=== PATIENT | male | born 1975 | race Caucasian/White ===

== ENCOUNTER 2020-09-06 14:52 | Inpatient (IN) | payer BC ==
[~2020-09-06] VITALS: Ht 177.8 cm; Wt 130.4 kg
[2020-09-06] MEDS ORDERED: ALPR1 PO (15:14)
[2020-09-06] MEDS ORDERED: ATOR40TA PO (15:14)
[2020-09-06] MEDS ORDERED: METO50 PO (15:15)
[2020-09-06] MEDS ORDERED: OMEP20ER PO (15:15)
[2020-09-06] MEDS ORDERED: BUPR150ER PO (15:15)
[2020-09-06] MEDS ORDERED: HYDCHL25 PO (15:15)
[2020-09-06 19:34] LABS: International Normalized Ratio 0.97; Prothrombin Time Results 10.4 Sec (9.7-11.5)
--- NOTE | 2020-09-06 21:35 | NUR ---
PT ARRIVES TO ICU 4 VIA GURNEY FROM ER, DENIES PAIN, DENIES CP/PRESSURE, DENIES SOB/DYSPNEA WHILE AT REST, DENIES NUMBNESS/TINGLING, DENIES N/V. HE IS NOTED TO BE MAINTAINING SATS, SPEAKING IN FULL SENTENCES, OCCASIONAL HARSH COUGH, NO VISIBLE INCREASED WORK OF BREATHING AT REST. SINUS RHYTHM ON MONITOR, RATE 80S, HYPERTENSION NOTED, PT STATES HASN'T TAKEN ALL OF HIS HOME MEDS TODAY, WILL ADMIN ORDERED LOPRESSOR AND MONITOR, NO EDEMA IS NOTED, BRISK CAP REFILL, STRONG PULSES, SKIN PWD. HEPARIN GTT INFUSING AT 15 UNITS/KG/HR FOR 96 KG, RATE 28.8 ML/HR, NEXT PTT DUE AT 0300. RECOMMENDED ACTIVITY LEVEL DISCUSSED WITH PT, CALL LIGHT PROVIDED, USE EXPLAINED AND ENCOURAGED. BED ALARM ARMED SECONDARY TO HX OF ETOH USE, PT VERBALIZED UNDERSTANDING.
[2020-09-07 03:35] LABS: Alanine Aminotransfer (ALT/SGP 12 U/L (12-78); Albumin, Blood 2.9 g/dL (3.4-5.0); Albumin/Globulin Ratio 0.8 (0.8-1.8); Alk Phos 83 U/L (50-136); Anion Gap 6 mmol/L (6-16); Aspartate Aminotrans (AST/SGOT 20 U/L (12-37); Bilirubin, Total 0.9 mg/dL (0.1-1.0); Blood Urea Nitrogen 10 mg/dL (8-24); Bun/Creatinine Ratio 11.4 (12.0-20.0); CO2, Blood 24 mmol/L (21-32); Calcium, Blood 8.4 mg/dL (8.5-10.1); Chloride, Blood 105 mmol/L (98-108); Creatinine, Blood 0.88 mg/dL (0.60-1.20); Globulin, Blood 3.8 g/dL (2.2-4.0); Glomerular Filtration Rate >60 (60-); Glucose, Blood 103 mg/dL (70-99); Potassium, Blood 3.9 mmol/L (3.5-5.5); Sodium, Blood 135 mmol/L (136-145); Total Protein, Blood 6.7 g/dL (6.4-8.2)
--- NOTE | 2020-09-07 05:43 | NUR ---
PT CONTINUES TO DENY CP/PRESSURE, DENIES SOB/DYSPNEA AT REST THROUGHOUT SHIFT, CIWA REMAINS AT 0, PT DECLINES OFFERED XANAX, DECLINES SLEEP MASK, EAR PLUGS, OR HAVING DOOR SHUT, STATES THAT HE HAS BEEN ABLE TO SLEEP HOWEVER HE IS NOTED AWAKE WITH EACH ROUNDS IN ROOM. HE CONTINUES TO SPEAK IN FULL SENTENCES AND MAINTAIN SATS ON ROOM AIR, 2ND LITER OF NS HELD ON ARRIVAL TO ICU FOR HYPERTENSION AND LOPRESSOR ADMIN PER ORDERS HOWEVER PT REMAINS SOMEWHAT HYPERTENSIVE, DISCUSSED WITH DR KAUR IN UNIT THIS AM AND ORDERS TO DC 2ND LITER OF IVF OBTAINED.
--- NOTE | 2020-09-07 07:30 | NUR ---
ASSUMED CARE REPORT FROM RICHY RN. PT AWAKE, ALERT AND COOPERATIVE WITH CARE. DENIES PAIN, DISCOMFORT OR DYSPNEA AT REST. VSS, OCCASIONAL HTN NOTED. O2 SATS >95% ON RA. HEPARIN GTT INFUSING, VERIFIED WITH OFF-GOING RN AT 17UNITS/KG/HR WITH NEXT PTT DUE AT 1100. AWAITING ON DR OVALLE'S ASSESSMENT/DETERMINATION TO GO TO IRRIGATION INSTALLATION SPECIALIST.
--- NOTE | 2020-09-07 09:19 | NUR ---
UPDATE TO SPOKE WITH HAKAN, UPDATED ON PLAN OF CARE AND WAITING ON DR. OVALLE TO MAKE DETERMINIATION ON GOING TO WATER FABRICATOR OPERATOR. IF PATIENT DOES NOT GO TO WATER FABRICATOR OPERATOR, THE PLAN IS TO START ON ORAL ANTICOAGULATION. PATIENT IS NOT MED NO TELE STATUS PER DR. DO.
--- NOTE | 2020-09-07 09:45 | NUR ---
REPORT TO [facility] ON MEDICAL FLOOR REPORT TO [facility], PATIENT GOING TO 313-2. PLAN TO UPDATE ON TRANSFER.
--- NOTE | 2020-09-07 10:13 | NUR ---
PT ARRIVED TO ROOM 313 FROM ICU VIA W/C. PT A/O ORIENTED X4, SBA ASSIST TO BED. HEPARIN DRIP INFUSING. PT ORIENTED TO ROOM AND CALL SYSTEM. DENIES PAIN/DISCOMFORT, ON RA. WILL CONTINUE TO MONITOR.
--- NOTE | 2020-09-07 12:45 | NUR ---
HEPARIN RATE INCREASED FROM 17U/KG/HR TO 18U/KG/HR.
--- NOTE | 2020-09-07 15:35 | NUR ---
PT TO ANIMAL ASSISTED THERAPIST VIA W/C. HEPARIN DRIP STOPPED AND DISCONECTED.
--- NOTE | 2020-09-07 19:35 | NUR ---
noted that ptt came back critical at 127. pharmacy notified - ordered to hold hep gtt for one hour. will restart hep gtt at 2100 at 16u/kg/hr.
--- NOTE | 2020-09-07 19:48 | NUR ---
ASSUMED CARE FROM [facility] RN PT ARRIVED TO PCU AT APPROXIMATELY 1800 AFTER HAVING A DVT IN THE LEFT LEG THAT WAS TREATED BY VASQUEZ. PT HAD GROIN ACCESS ON THE RIGHT LEG AND HAS BEEN PLACED ON A HEPARIN DRIP. PT ARRIVED AND THERE WAS NO DRAINAGE FROM THE SITE, PT HAS FULL SENSATION AROUND THE SITE AND DOWN THE LEG AND FOOT. NO REDNESS OR SWELLING OR PAIN AT THE SITE. VS STABLE, PT ON RA AND LEFT LYING FLAT FOR APPROXIMATELY 2 HOURS. A PRESSURE DRESSING COVERS THE SITE, THE DRESSING IS C/D/I. PT WAS ABLE TO HAVE DINNER AND IS NOW RESTING AND WATCHING TV.
--- NOTE | 2020-09-08 05:52 | NUR ---
SHIFT SUMMARY PT RESTED WELL THROUGH NIGHT. ABLE TO MAKE NEEDS KNOWN. UP AT BEDSIDE TO VOID - AMBULATES WELL. MINIMAL DISCOMFORT AT R GROIN SITE. SITE C/D/I. SATS >90% ON ROOM AIR. TELE NSR. HEP GTT ADJUSTED 18U/KG/HR + BOLUS. NO C/O PAIN. PT READY TO GO HOME. CALL LIGHT WITHIN REACH, BED IN LOWEST POSITION. WILL CONTINUE TO MONITOR.
[2020-09-08] MEDS ORDERED: XARELTO20 MG PO (09:19)
[2020-09-08] MEDS ORDERED: XARELTO15 M1 PO (09:22)
--- NOTE | 2020-09-08 14:15 | NUR ---
DISCHARGE SUMMARY PT A&Ox4; CALM AND COOPERATIVE WITH CARE. PT RESTING IN BED. UP TO BATHROOM SBA. PT DENIES PAIN, CHEST PAIN, SOB, NAUSEA AND DIZZINESS. PT STARTED ON XARELTO THIS AM. VSS. NO OTHER ACUTE CHANGES NOTED. PT AND SPOUSE EDUCATED ON DISCHARGE INSTRUCTIONS, FOLLOW UP APPOINTMENT AND MEDICATIONS. PRESCRIPTIONS CALLED INTO [facility]. PT LEFT ROOM VIA WHEELCHAIR AT 1034. PT STABLE UPON DISCHARGE.
== END 2020-09-08 10:35 | disposition home or self-care (01) | DRG 164 ==
LOC: ER 14:52 → ERHOLD 19:10 → MEDS 19:10 → ICUE 19:10 → PCU 21:30 → ICUE 21:34 → MEDS 09-07 10:11 → ENPENDDIS 09-07 15:25 → PCU 09-07 16:11
PROVIDERS: Emergency Medicine; ADMIT Internal Medicine
PROC: 02CR3ZZ Extirpation of Matter from Left Pulmonary Artery, Percutaneous Approach (ICD-10-PCS; principal; 2020-09-07)
PROC: 02CQ3ZZ Extirpation of Matter from Right Pulmonary Artery, Percutaneous Approach (ICD-10-PCS; 2020-09-07)
DX: I26.09 Other pulmonary embolism with acute cor pulmonale (principal); I82.411 Acute embolism and thrombosis of right femoral vein; I82.431 Acute embolism and thrombosis of right popliteal vein; E87.1 Hypo-osmolality and hyponatremia; I10 Essential (primary) hypertension; Z20.822 Contact with and (suspected) exposure to COVID-19
CPT/HCPCS: 36014; 36015; 36415; 37184; 37185; 71046; 71260; 75743; 76937; 80053; 82550; 84484; 85025; 85347; 85379; 85610; 85730; 93306; 93971; 96374-59; 96376-59; 99152; 99153; 99285-25; A9270; C1760; C1769; C1887; C1894; J1644; J2250; J3010; J7030; J7040; Q9967

== ENCOUNTER 2020-11-11 10:03 | Day surgery (SDC) | payer BC ==
[~2020-11-11] VITALS: Ht 177.8 cm; Wt 136.4 kg
[~2020-11-11 10:03] MED LIST: ALPR1 PO; ATOR40TA PO; BUPR150ER PO; HYDCHL25 PO; METO50 PO; OMEP20ER PO; XARELTO15 M1 PO; XARELTO20 MG PO
--- NOTE | 2020-11-11 12:43 | NUR ---
DR. OVALLE TO THE BEDSIDE FOR PRE OPERATIVE EVALUATION.
--- NOTE | 2020-11-11 12:55 | NUR ---
PATIENT TO THE LAB FOR PROCEDURE. HE INFORMED BY PHONE OF PROCEDURE START TIME.
--- NOTE | 2020-11-11 14:52 | NUR ---
PATIENT RETURNED FROM THE [facility] WITH A RIGHT BEHIND THE KNEE ACCESS SITE. OOZING SLIGHTLY, MANUAL PRESSURE APPLIED FOR FIVE MINUTES AND THEN DRESSING CHANGED. PATIENT SITTING UP IN THE BED AND MEAL SERVED. MONITOR IN PLACE AND CALL LIGHT IN REACH.
--- NOTE | 2020-11-11 15:06 | NUR ---
TO THE BEDSIDE AND LUNCH TRAY SERVED. PATIENT AWAKE AND FEEDING SELF.
--- NOTE | 2020-11-11 15:55 | NUR ---
BEHIND THE RIGHT KNEE ACCESS SITE IS STABLE. DR. OVALLE ORDERED THE PURSE STRING SUTURE REMOVED. THIS WAS PERFORMED AND NEW BHAVESH DRESSING APPLIED.
--- NOTE | 2020-11-11 15:56 | NUR ---
PATIENT WAS ALLOWED UP TO THE RESTROOM. BLEEDING OCCURED WITH WALKING. PATIENT BACK TO BED AND UP ON THE LEFT SIDE. MANUAL PRESSURE HELD FOR TEN NORE MINUTES AND REDRESSED WITH BAHVESH/TEGADERM.
--- NOTE | 2020-11-11 16:31 | NUR ---
PATIENT ATTEMPTED TO GET UP AGAIN. WAS UP AND WALKING AND WENT TO SIT BACK DOWN AND REBLED. MANUAL PRESSURE HELD FOR 10 MINUTES AND SMALL PRESSURE DRESSING APPLIED.
--- NOTE | 2020-11-11 17:05 | NUR ---
PT OKAY TO GO HOME WITH LIGHT PRESSURE DRESSING IN PLACE. TO BE TAKEN OFF LATER THIS EVENING. DISCHARGE GONE OVER WITH PT, VERBALIZES UNDERSTANDING. SALINE LOCK REMOVED WITH CATHETER INTACT. PT TO PRIVATE VEHICLE PER W/C.
== END 2020-11-11 22:47 | disposition home or self-care (01) ==
LOC: MHTC 10:03
DX: I82.411 Acute embolism and thrombosis of right femoral vein (principal); I26.99 Other pulmonary embolism without acute cor pulmonale; R59.0 Localized enlarged lymph nodes; I10 Essential (primary) hypertension; Z87.891 Personal history of nicotine dependence; Z79.01 Long term (current) use of anticoagulants
CPT/HCPCS: 76937; 93005; 93010; 99152; 99153; C1725; C1750; C1757; C1769; C1887; J1644; J2250; J3010; J7030; Q9967

== ENCOUNTER 2020-12-01 00:39 | Day surgery (SDC) | payer BC | END 2020-12-01 17:00 | disposition home or self-care (01) | LOC: ATC 00:39 | DX: I82.409 Acute embolism and thrombosis of unspecified deep veins of unspecified lower extremity (principal); I26.99 Other pulmonary embolism without acute cor pulmonale; Z79.01 Long term (current) use of anticoagulants; Z79.899 Other long term (current) drug therapy; Z87.891 Personal history of nicotine dependence | CPT/HCPCS: 96372; J1650 ==

== ENCOUNTER 2020-12-02 00:16 | Day surgery (SDC) | payer BC | END 2020-12-02 16:15 | disposition home or self-care (01) | LOC: ATC 00:16 | DX: I82.409 Acute embolism and thrombosis of unspecified deep veins of unspecified lower extremity (principal); I26.99 Other pulmonary embolism without acute cor pulmonale; Z79.01 Long term (current) use of anticoagulants; Z79.899 Other long term (current) drug therapy; Z87.891 Personal history of nicotine dependence | CPT/HCPCS: 96372; J1650 ==

== ENCOUNTER 2022-05-07 13:13 | Emergency (ER) | payer BC ==
[~2022-05-07] VITALS: Ht 177.8 cm; Wt 136.1 kg
[2022-05-07] MEDS ORDERED: BREO ELLIPTA 21 EAC1 IH (13:57)
== END 2022-05-07 13:59 | disposition home or self-care (01) ==
LOC: ER 13:13
DX: R04.0 Epistaxis (principal); I10 Essential (primary) hypertension; Z79.899 Other long term (current) drug therapy; Z79.01 Long term (current) use of anticoagulants; Z87.891 Personal history of nicotine dependence
CPT/HCPCS: 99283